=== PATIENT | male | born 1945 | race American Indian/Alaskan Native ===

== ENCOUNTER 2021-06-03 10:13 | Observation (INO) | payer MEDICARE ==
--- NOTE | 2021-06-03 09:21 | Short Stay Summary ---
Short Stay Documentation Date of service: 06/03/21 - History Principal diagnosis: NICMP H&P: obtained from office Past Medical History: heart failure, hypertension, hyperlipidemia, renal failure, stroke, other (NICMP, moderate MR) Past Surgical History: no CABG, no PTCA Social history: alcohol abuse (occasional), no smoking - Physical exam General appearance: no acute distress Integumentary: no rash HEENT: Atraumatic, EOMI, Mucous membr. moist/pink Lungs: Clear to auscultation Heart: Normal S1, Normal S2 Gastrointestinal: normal Extremities: pulses intact, No edema, normal temperature Neurological: Normal speech, Normal tone, Sensation intact - Brief post op/procedure progress note Date of procedure: 06/03/21 Pre-op diagnosis: NICMP Post-op diagnosis: other (S/p ICD Implantation) Surgeon: ROSARIO CHAO Estimated blood loss: minimal Pathology: none Condition: stable - Hospital course Hospital course: Pt presented for elective ICD implantation in the setting of NICMP. See operative report. Pt tolerated procedure well. Currently stable with no complaints. Anticipate discharge in AM. Follow-up for incision check on 06/11/2021 @ 10am ([phone]). - Disposition Condition at discharge: Good Disposition: 01 HOME / SELF CARE / HOMELESS - Discharge Diagnoses (1) S/P ICD (internal cardiac defibrillator) procedure Status: Acute (2) NICM (nonischemic cardiomyopathy) Status: Chronic (3) Chronic HFrEF (heart failure with reduced ejection fraction) Status: Chronic (4) CKD (chronic kidney disease) Status: Chronic (5) HTN (hypertension) Status: Chronic (6) HLD (hyperlipidemia) Status: Chronic (7) H/O: CVA (cerebrovascular accident) Status: Chronic Short Stay Discharge Plan Activity: advance as tolerated Diet: low fat, low cholesterol, low salt Wound: per your surgeon's advice Follow up with: ROSARIO CHAO MD [Staff Physician] - 06/11/21 10:00 am (Follow-up at device clinical for incision check 06/11/2021 @ 10am. Follow-up with Dr. Giang on 07/12/2021 @ 11am ([phone]). ) ELVER GIANG MD [Staff Physician] - 6 Weeks
[2021-06-03] MEDS ORDERED: SODIUM CHLORIDE 0.9% 1000 ML 1,000 ML IV SCH (12:00)
[2021-06-03] MEDS ORDERED: SODIUM CHLORIDE IRRI 1000 ML 1,000 ML, .VANCOMYCIN VIAL 1,000 MG IR NR (12:00)
[2021-06-03 12:03] LABS: Basophils % (Auto) 0.9 % (0.0-1.8); Eosinophils # (Auto) 0.1 K/mm3 (0.0-0.4); Eosinophils % (Auto) 3.1 % (0.0-4.3); Hematocrit 35.8 % (35.5-45.6); Hemoglobin 11.5 gm/dl (11.8-15.2); Lymphocytes # (Auto) 1.6 K/mm3 (1.2-5.4); Lymphocytes % (Auto) 38.1 % (13.4-35.0); Mean Corpuscular HGB Conc 32 % (32-34); Mean Corpuscular Volume 82 fl (84-94); Monocytes # (Auto) 0.5 K/mm3 (0.0-0.8); Monocytes % (Auto) 11.6 % (0.0-7.3); Platelet Count 170 K/mm3 (140-440); Red Blood Count 4.35 M/mm3 (3.65-5.03)
[2021-06-03 12:43] LABS: Alanine Aminotransferase 9 units/L (7-56); BUN/Creatinine Ratio 12; Blood Urea Nitrogen 16 mg/dL (9-20); Calcium 9.1 mg/dL (8.4-10.2); Hemolysis Index 59
[2021-06-03] MEDS ORDERED: HYDROcodone/ACETAMINOPHEN 5-325 MG TAB PO PRN (13:59)
[2021-06-03] MEDS ORDERED: MORPHINE 4 MG/1 ML INJ IV PRN ×2 (13:59→17:04)
[2021-06-03] MEDS ORDERED: ACETAMINOPHEN 325 MG TAB PO PRN (13:59)
[2021-06-03] MEDS ORDERED: ONDANSETRON 4 MG/2 ML INJ IV PRN (13:59)
--- NOTE | 2021-06-03 14:01 | Anesthesia Consultation ---
Anesthesia Consult and Med Hx Date of service: 06/03/21 - Airway Anesthetic Teeth Evaluation: Caps ROM Head & Neck: Inadequate Mental/Hyoid Distance: Adequate Mallampati Class: Class III Intubation Access Assessment: Possibly Difficult - Pulmonary Exam CTA: Yes - Cardiac Exam Cardiac Exam: RRR - Pre-Operative Health Status ASA Pre-Surgery Classification: ASA3 Proposed Anesthetic Plan: MAC - Pulmonary Hx Smoking: No Hx Asthma: No COPD: No - Cardiovascular System Hx Hypertension: Yes (No medications since last night) Hx Coronary Artery Disease: Yes Hx Heart Attack/AMI: No Hx Cardia Arrhythmia: No Hx Valvular Heart Disease: Yes (mitral regurgitation ) Hx Heart Murmur: Yes Hx Peripheral Vascular Disease: No - Central Nervous System 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
--- NOTE | 2021-06-03 14:03 | Anesthesia Day of Surgery ---
Anesthesia Day of Surgery - Day of Surgery Patient Examined: Yes Patient H&P Reviewed: Yes Patient is NPO: Yes ([id number]) Beta Blockers: No
[2021-06-03] MEDS ORDERED: ePHEDrine SULFATE 50 MG/1 ML INJ ONE (14:08)
[2021-06-03] MEDS ORDERED: LIDOCAINE MPF (2%) 20 MG/1 ML VIAL 5 ML ONE (14:08)
[2021-06-03] MEDS ORDERED: PHENYLEPHRINE/NS 1,000 MCG/10 ML SYRINGE (OR USE) IV ONE (14:08)
[2021-06-03] MEDS ORDERED: fentaNYL 100 MCG/2 ML INJ ONE (14:09)
[2021-06-03] MEDS ORDERED: MIDAZOLAM 2 MG/2 ML INJ ONE (14:09)
[2021-06-03] MEDS ORDERED: KETAMINE/STERILE WATER 50 MG/ML SYRINGE ONE (14:10)
[2021-06-03] MEDS ORDERED: LIDOCAINE (1%) 10 MG/1 ML VIAL 20 ML MDV ONE (14:31)
[2021-06-03] MEDS ORDERED: SODIUM CHLORIDE IRRI 500 ML 500 ML IR ONE ×2 (14:31→15:59)
[2021-06-03] MEDS ORDERED: SODIUM CHLORIDE 0.9% 500 ML 500 ML ONE (14:32)
[2021-06-03] MEDS: ceFAZolin/Water 2 GM/20 ML 2 GM/20 ML SYRINGE IV ONE ×2 (15:10→15:41)
[2021-06-03] MEDS: BUPIVACAINE/PF (0.5%) 5 MG/1 ML 30 ML VIAL INFILTRATI ONE ×2 (15:38→15:39)
[2021-06-03] MEDS ORDERED: .VANCOMYCIN VIAL 1,000 MG in SODIUM CHLORIDE IRRI 1000 ML 1,000 ML IRRIGATION ONE (16:32)
--- NOTE | 2021-06-03 17:33 | Post Anesthesia Evaluation ---
- Post Anesthesia Evaluation Patient Participated: Yes Airway Patent: Yes Stable Respiratory Function: Yes Nausea/Vomiting: No Temp > 96.8F: Yes Pain Manageable: Yes Adequeate Hydration: Yes Anesthesia Complications: No
--- NOTE | 2021-06-03 18:29 | XRay Report ---
CHEST 1 VIEW 06/03/2021 6:19 PM INDICATION / CLINICAL INFORMATION: Pacemaker Postop. COMPARISON: 06/22/2020 FINDINGS: SUPPORT DEVICES: ICD in satisfactory position. No pneumothorax. HEART / MEDIASTINUM: Stable cardiomegaly. LUNGS / PLEURA: No significant pulmonary or pleural abnormality. No pneumothorax. ADDITIONAL FINDINGS: No significant additional findings. IMPRESSION: Stable cardiomegaly. Signer Name: Derrick Durán MD Signed: 06/03/2021 6:25 PM Workstation Name: [id number]
[2021-06-03] MEDS: carvediloL 25 MG TAB PO SCH (21:16)
[2021-06-03] MEDS: ceFAZolin/NS 1 GM/50 ML 1 GM/50 ML BAG IV SCH (21:30)
[2021-06-03] MEDS ORDERED: ISOSORBIDE DINITRATE 20 MG TAB PO SCH (22:00)
[2021-06-04] MEDS: HYDROcodone/ACETAMINOPHEN 5-325 MG TAB PO PRN ×3 (02:13→16:30)
[2021-06-04] MEDS: hydrALAZINE 25 MG TAB PO SCH ×2 (05:11→15:43)
[2021-06-04] MEDS: ceFAZolin/NS 1 GM/50 ML 1 GM/50 ML BAG IV SCH (05:36)
[2021-06-04 06:24] LABS: Calcium 8.5 mg/dL (8.4-10.2)
[2021-06-04] MEDS: carvediloL 25 MG TAB PO SCH (09:10)
[2021-06-04] MEDS ORDERED: FUROSEMIDE 20 MG TAB PO SCH (10:00)
[2021-06-04] MEDS ORDERED: amLODIPine 5 MG TAB PO SCH (10:00)
[2021-06-04] MEDS ORDERED: ASPIRIN 81 MG TAB CHEW PO SCH (10:00)
[2021-06-04 11:54] VITALS: BP 159/84
--- NOTE | 2021-06-07 14:34 | Electrocardiograph Report ---
[facility] Test Date: 2021-06-03 Test Time: 12:00:16 Pat Name: VINCENZO CASTILLO Department: Room: A474 Gender: M [employer]: TITA : 1945 Requested By: ROSARIO CHAO Order Number: [id number] Reading MD: Connie Vo Measurements Intervals [place] Rate: 75 P: 31 [place]: 255 QRS: -12 QRSD: 111 T: 117 QT: 422 QTc: 473 Interpretive Statements Sinus rhythm Frequent PVCs Prolonged [place] interval Probable LVH with secondary repol abnrm No previous ECG available for comparison Electronically Signed On 06-07-2021 14:34:30 EDT by Connie Vo
== END 2021-06-04 17:30 | disposition home or self-care (01) ==
LOC: CATHLABREC 10:13 → 4A 13:59
PROVIDERS: ADMIT Internal Medicine Cardiovascular Disease; ATTEND Internal Medicine Cardiovascular Disease
DX: I42.0 Dilated cardiomyopathy (principal); I13.0 Hypertensive heart and chronic kidney disease with heart failure and stage 1 through stage 4 chronic kidney disease, or unspecified chronic kidney disease; I50.22 Chronic systolic (congestive) heart failure; N18.9 Chronic kidney disease, unspecified; E78.5 Hyperlipidemia, unspecified; Z86.73 Personal history of transient ischemic attack (TIA), and cerebral infarction without residual deficits
CPT/HCPCS: 33249; 36415; 71045; 80048; 80053; 85025; 93005; 96365; 96366; C1721; C1769; C1777; C1892; C1898; G0378; J0690; J2250; J2370; J2704; J3370; J3490; J7030; J7040; J3010; J7120; Q9967